=== PATIENT | male | born 1975 | race Caucasian/White ===

== ENCOUNTER 2017-03-31 16:37 | Emergency (ER) | payer SELFPAY ==
[~2017-03-31] VITALS: Ht 177.8 cm; Wt 72.6 kg
[2017-03-31] MEDS ORDERED: NKM (17:10)
[2017-03-31 18:09] LABS: APPEARANCE,URINE CLEAR; KETONES,URINE NEGATIVE (NEGATIVE); LEUKOCYTE ESTERASE ,URINE 1+ (NEGATIVE); NITRITE,URINE NEGATIVE (NEGATIVE); PH,URINE 7 (4.5-8.0); PROTEIN,URINE NEGATIVE (NEGATIVE); UROBILINOGEN,URINE 4 MG/DL (0.0-1.0)
[2017-03-31 18:21] LABS: BACTERIA,URINE FEW /HPF; RBC,URINE 0-2 /HPF (0 - 0)
--- NOTE | 2017-03-31 18:25 | Emergency Room Report ---
History of Present Illness General Chief Complaint: Male Urogenital Problems Source: Patient Present Illness HPI 41-year-old male presents emergency department complaining of dysuria with frequency x 3 days in addition to heaviness in the groin. Patient reports history of prostatitis twice in the past which responds best to Cipro, has not seen his urologist in a year as he has not had recent prostate symptoms. Reports recent travel which he believes may have aggravated his symptoms. denies fevers or chills denies low back pain denies nausea vomiting or abdominal pain. He denies testicular tenderness or testicular swelling patient denies penile discharge or recent unprotected intercourse. denies hematuria. Denies CP, Palpitations, LOC, AMS, dizziness, Changes in Vision, Sensation, paresthesias, or a sudden severe headache. Allergies: Coded Allergies: No Known Allergies (Unverified , 03/31/17) Patient History Past Medical History: see triage record Past Surgical History: none Pertinent Family History: none Immunizations: UTD Reviewed Nursing Documentation: PMH: Agreed, PSxH: Agreed Review of Systems All Other Systems: negative except mentioned in HPI Physical Exam Vital Signs Date Time Temp Pulse Resp B/P (MAP) Pulse Ox O2 Delivery O2 Flow Rate FiO2 03/31/17 17:07 98.2 81 16 116/72 98 Room Air Sp02 EP Interpretation: reviewed, normal General Appearance: no apparent distress, alert, GCS 15, non-toxic Head: normocephalic, atraumatic Eyes: bilateral eye normal inspection, bilateral eye PERRL ENT: hearing grossly normal, normal voice Neck: full range of motion Respiratory: lungs clear, normal breath sounds, speaking full sentences Cardiovascular #1: regular rate, rhythm Gastrointestinal: normal bowel sounds, non tender, soft, no guarding, no rebound Rectal: deferred, other - PT. DECLINES PROSTATE EXAM Genitourinary: normal inspection, no CVA tenderness Musculoskeletal: back normal, gait/station normal, normal range of motion, non- tender Neurologic: alert, oriented x3, responsive, motor strength/tone normal, sensory intact, speech normal Psychiatric: judgement/insight normal, memory normal, mood/affect normal Skin: normal color, no rash, warm/dry, well hydrated Lymphatic: no adenopathy Medical Decision Making PA Attestation Dr. King is my supervising Physician whom patient management has been discussed with. Diagnostic Impression: Primary Impression: Acute prostatitis ER Course 41-year-old male presents emergency department complaining of dysuria with frequency x 3 days in addition to heaviness in the groin. Patient reports history of prostatitis twice in the past which responds best to Cipro, has not seen his urologist in a year as he has not had recent prostate symptoms. Reports recent travel which he believes may have aggravated his symptoms. denies fevers or chills denies low back pain denies nausea vomiting or abdominal pain. He denies testicular tenderness or testicular swelling patient denies penile discharge or recent unprotected intercourse. denies hematuria. Denies CP, Palpitations, LOC, AMS, dizziness, Changes in Vision, Sensation, paresthesias, or a sudden severe headache. Ddx considered but are not limited to UTi , Pyelo, STI, Stone, prostatitis, Testicular torsion, cancer, BPH, Cystitis Vital signs: are WNL, pt. is afebrile H&PE are most consistent with recurrent episode of prostatitis. ORDERS: - UA labs are attached : Few bacteria with increased leukocytes. mild infection considered. ED INTERVENTIONS: None required at this time d/w pt. that he will be given Rx for Cipro, and to follow up with urologist. gave ED return precautions for worsening of symptoms, new symptoms, or suspected progression of infection. DISCHARGE: At this time pt. is stable for d/c to home. Will provide printed patient care instructions, and any necessary prescriptions. Care plan and follow up instructions have been discussed with the patient prior to discharge. Labs Test 03/31/17 17:40 Urine Color Yellow Urine Appearance Clear Urine pH 7 (4.5-8.0) Urine Specific [place] 1.015 (1.005-1.035) Urine Protein Negative (NEGATIVE) Urine Glucose (UA) Negative (NEGATIVE) Urine Ketones Negative (NEGATIVE) Urine Occult Blood Negative (NEGATIVE) Urine Nitrite Negative (NEGATIVE) Urine Bilirubin Negative (NEGATIVE) Urine Urobilinogen 4 MG/DL (0.0-1.0) Urine Leukocyte Esterase 1+ (NEGATIVE) Urine RBC 0-2 /HPF (0 - 0) Urine WBC 2-4 /HPF (0 - 0) Urine Squamous Epithelial Cells None /LPF (NONE/OCC) Urine Bacteria Few /HPF (NONE) Last Vital Signs Date Time Temp Pulse Resp B/P (MAP) Pulse Ox O2 Delivery O2 Flow Rate FiO2 03/31/17 17:07 98.2 81 16 116/72 98 Room Air Disposition: HOME, SELF-CARE Condition: Stable Scripts Ibuprofen* (MOTRIN*) 600 Mg Tablet 600 MG ORAL THREE TIMES A DAY, #30 TAB 0 Refills Prov: Nedra Squires 03/31/17 Ciprofloxacin* (CIPRO*) 500 Mg Tablet 500 MG PO BID for 7 Days, #14 TAB Prov: Nedra Squires 03/31/17 Patient Instructions: Prostatitis, [id number] Additional Instructions: Take medications as directed. Follow up with a Primary Care Provider in 3-5 days, even if your symptoms have resolved. UROLOGY EVALUATION --Please review list of primary care clinics, if you do not already have a primary care provider Return sooner to ED if new symptoms occur, or current symptoms become worse. - Please note that this Emergency Department Report was dictated using [employer] shop supervisor technology software, occasionally this can lead to erroneous entry secondary to interpretation by the dictation equipment. Nedra Squires Mar 31, 2017 18:25
[2017-03-31] MEDS ORDERED: IBUPROFEN600 MG ORAL (18:26)
[2017-03-31] MEDS ORDERED: CIPRO500 MG PO (18:26)
[2017-03-31 18:49] VITALS: BP 119/74
[2017-03-31 18:50] VITALS: BP 116/72
== END 2017-03-31 18:50 | disposition home or self-care (01) ==
LOC: EMR 18:30
DX: N41.9 Inflammatory disease of prostate, unspecified (principal)
CPT/HCPCS: 81003; 99284